=== PATIENT | female | born 1950 | race African-American/Black ===

== ENCOUNTER 2022-09-16 11:02 | Inpatient (IN) | payer BC, MEDICAID ==
[~2022-09-16] VITALS: Ht 167.6 cm; Wt 106.4 kg
[2022-09-16 12:07] LABS: BASOPHILS % 0.9 % (0.0-2.0); HEMATOCRIT. 34.7 % (36.0-48.0); HEMOGLOBIN. 11.3 g/dL (12.0-16.0); LYMPHOCYTES % 45.3 % (20.0-50.0); MEAN CORPUSCULAR VOLUME 70.9 fL (81.0-99.0); MEAN PLATELET VOLUME 10.4 fl (7.4-10.4); MONOCYTES % 8.7 % (2.0-8.0); NEUTROPHILS % 43.1 % (40.0-76.0); PLATELET 219 x1000/uL (130-400); RED CELL DISTRIBUTION WIDTH 15.3 % (11.6-14.6)
[2022-09-16 12:15] LABS: CHLORIDE 108 mEq/L (98-107)
[2022-09-16] MEDS ORDERED: ENOXAPARIN 80MG/0.8ML SYR SUBCUT NR (13:45)
[2022-09-16] MEDS ORDERED: ENOXAPARIN 80MG/0.8ML SYR SUBCUT ONE (13:45)
[2022-09-16] MEDS ORDERED: CLONIDINE 0.1MG TABLET PO PRN (14:30)
[2022-09-16] MEDS ORDERED: IPRATROPIUM/ALBUTEROL 0.5-3(2.5)MG/3ML NEB HHN PRN (14:30)
[2022-09-16] MEDS ORDERED: ENOXAPARIN 40MG/0.4ML SYR SUBCUT SCH (14:30)
[2022-09-16] MEDS ORDERED: ONDANSETRON HCL 4MG/2ML INJ IV PRN (14:30)
[2022-09-16] MEDS ORDERED: HYDROCODONE/ACETAMINOPHEN 5/325MG TABLET PO PRN (14:30)
[2022-09-16] MEDS ORDERED: ACETAMINOPHEN 325MG TABLET PO PRN (14:30)
[2022-09-16] MEDS ORDERED: GUAIFENESIN 200MG/10ML SUGAR FREE UDC PO PRN (14:30)
[2022-09-16] MEDS ORDERED: POTASSIUM CHLORIDE 20MEQ TABLET SR PO NR (15:00)
[2022-09-16] MEDS ORDERED: NALOXONE HCL 0.4MG/ML VIAL IV PRN (15:00)
[2022-09-16] MEDS ORDERED: IOHEXOL-350 100 ML BOTTLE ONE ×2 (15:06→18:10)
[2022-09-16 16:03] LABS: TOTAL IRON BINDING CAPACITY 286 ug/dL (250-450)
[2022-09-16 16:18] LABS: FERRITIN 28 ng/mL (10-291)
[2022-09-16 16:59] LABS: VITAMIN B12 SERUM 509 pg/mL (211-911)
[2022-09-16 17:13] LABS: FOLIC ACID (FOLATE) SERUM > 20.00 ng/mL (>5.38)
[2022-09-16 18:00] VITALS: BP 160/57
[2022-09-16] MEDS ORDERED: DIPH25CA83 MT (19:30)
[2022-09-16 20:00] VITALS: BP 152/59
[2022-09-17] VITALS: BP 119/54
[2022-09-17 04:00] VITALS: BP 120/57
[2022-09-17 06:39] LABS: EOSINOPHILS % 3.3 % (0.0-5.0); HEMATOCRIT. 31.1 % (36.0-48.0); MEAN CORPUSCULAR HEMOGLOBIN 22.9 pg (28.0-32.0); MEAN CORPUSCULAR VOLUME 71.6 fL (81.0-99.0); MEAN PLATELET VOLUME 11.1 fl (7.4-10.4); MONOCYTES % 9.8 % (2.0-8.0); NEUTROPHILS % 55.9 % (40.0-76.0); PLATELET 183 x1000/uL (130-400); RED BLOOD CELL COUNT 4.35 mill/uL (4.2-5.4); RED CELL DISTRIBUTION WIDTH 16.2 % (11.6-14.6)
[2022-09-17 06:40] LABS: CHLORIDE 109 mEq/L (98-107)
[2022-09-17 06:52] LABS: HDL CHOLESTEROL 67 mg/dL (40-59); LDL CHOLESTEROL 71 mg/dL (5-100)
[2022-09-17 07:45] VITALS: BP 119/54
[2022-09-17] MEDS: PANTOPRAZOLE SODIUM 40 MG/VIAL IV SCH (09:54)
[2022-09-17] MEDS: AMLODIPINE 5MG TABLET PO SCH (09:54)
[2022-09-17 11:07] VITALS: BP 121/59
[2022-09-17 11:40] LABS: HEPATITIS B SURFACE ANTIGEN NEGATIVE
[2022-09-17 15:35] VITALS: BP 125/59
[2022-09-17 20:00] VITALS: BP 131/62
[2022-09-18] VITALS: BP 116/84
[2022-09-18 04:00] VITALS: BP 125/68
[2022-09-18 07:09] LABS: PROTHROMBIN TIME 10.7 sec (9.6-11.0)
[2022-09-18 07:12] LABS: BASOPHILS % 0.7 % (0.0-2.0); EOSINOPHILS % 4.2 % (0.0-5.0); HEMOGLOBIN. 9.9 g/dL (12.0-16.0); MEAN CORPUSCULAR HEMOGLOBIN 22.3 pg (28.0-32.0); MEAN CORPUSCULAR VOLUME 71.8 fL (81.0-99.0); MEAN PLATELET VOLUME 10.7 fl (7.4-10.4); MONOCYTES % 10.1 % (2.0-8.0); PLATELET 186 x1000/uL (130-400); RED BLOOD CELL COUNT 4.46 mill/uL (4.2-5.4); RED CELL DISTRIBUTION WIDTH 16.1 % (11.6-14.6)
[2022-09-18 07:45] LABS: CHLORIDE 109 mEq/L (98-107)
[2022-09-18 08:00] VITALS: BP 111/69
[2022-09-18] MEDS: PANTOPRAZOLE SODIUM 40 MG/VIAL IV SCH (09:31)
[2022-09-18] MEDS: AMLODIPINE 5MG TABLET PO SCH (09:31)
[2022-09-18 12:00] VITALS: BP 131/79
[2022-09-18] MEDS: ACETAMINOPHEN 325MG TABLET PO PRN ×2 (13:58→20:59)
[2022-09-18] MEDS: MAGNESIUM/ALUMINUM HYDROXIDE/SIMETHICONE 30ML UDC PO PRN (14:03)
[2022-09-18] MEDS: DOCUSATE SODIUM 100MG CAPSULE PO PRN (14:03)
[2022-09-18 16:00] VITALS: BP 135/69
[2022-09-18 20:00] VITALS: BP 130/67
[2022-09-19] VITALS: BP 122/68
[2022-09-19] MEDS: ACETAMINOPHEN 325MG TABLET PO PRN ×3 (02:39→23:20)
[2022-09-19] MEDS: MAGNESIUM/ALUMINUM HYDROXIDE/SIMETHICONE 30ML UDC PO PRN ×2 (02:50→15:29)
[2022-09-19] MEDS: DOCUSATE SODIUM 100MG CAPSULE PO PRN (02:50)
[2022-09-19 04:00] VITALS: BP 135/65
[2022-09-19 07:16] LABS: BASOPHILS % 0.8 % (0.0-2.0); EOSINOPHILS % 4.7 % (0.0-5.0); HEMATOCRIT. 32.7 % (36.0-48.0); HEMOGLOBIN. 10.3 g/dL (12.0-16.0); LYMPHOCYTES % 25.8 % (20.0-50.0); MEAN CORPUSCULAR HEMOGLOBIN 22.7 pg (28.0-32.0); MEAN PLATELET VOLUME 11.6 fl (7.4-10.4); MONOCYTES % 8.1 % (2.0-8.0); NEUTROPHILS % 60.6 % (40.0-76.0); PLATELET 206 x1000/uL (130-400); RED BLOOD CELL COUNT 4.55 mill/uL (4.2-5.4); RED CELL DISTRIBUTION WIDTH 16.2 % (11.6-14.6)
[2022-09-19 07:29] LABS: CHLORIDE 108 mEq/L (98-107)
[2022-09-19 08:00] VITALS: BP 103/56
[2022-09-19] MEDS: AMLODIPINE 5MG TABLET PO SCH (09:00)
[2022-09-19] MEDS: PANTOPRAZOLE SODIUM 40 MG/VIAL IV SCH (09:05)
[2022-09-19 12:20] VITALS: BP 134/65
[2022-09-19 16:00] VITALS: BP 142/71
[2022-09-19 20:00] VITALS: BP 132/59
[2022-09-20] VITALS: BP 138/58
[2022-09-20 04:00] VITALS: BP 143/64
[2022-09-20 07:48] LABS: CHLORIDE 109 mEq/L (98-107)
[2022-09-20 07:49] LABS: BASOPHILS % 0.9 % (0.0-2.0); EOSINOPHILS % 3.1 % (0.0-5.0); HEMATOCRIT. 32.3 % (36.0-48.0); HEMOGLOBIN. 10.3 g/dL (12.0-16.0); LYMPHOCYTES % 21.8 % (20.0-50.0); MEAN CORPUSCULAR HEMOGLOBIN 22.9 pg (28.0-32.0); MEAN CORPUSCULAR VOLUME 71.6 fL (81.0-99.0); MEAN PLATELET VOLUME 11.6 fl (7.4-10.4); MONOCYTES % 9.9 % (2.0-8.0); NEUTROPHILS % 64.3 % (40.0-76.0); PLATELET 172 x1000/uL (130-400); RED BLOOD CELL COUNT 4.52 mill/uL (4.2-5.4); RED CELL DISTRIBUTION WIDTH 15.9 % (11.6-14.6)
[2022-09-20 08:00] VITALS: BP 129/44
[2022-09-20] MEDS: PANTOPRAZOLE SODIUM 40 MG/VIAL IV SCH (10:06)
[2022-09-20] MEDS: AMLODIPINE 5MG TABLET PO SCH (10:06)
[2022-09-20 12:00] VITALS: BP 144/64
[2022-09-20] MEDS ORDERED: FERROUS SULFATE 300MG/5ML UDC PO SCH (13:10)
[2022-09-20 15:07] VITALS: BP 144/69
== END 2022-09-20 16:15 | disposition home or self-care (01) | DRG 375 ==
LOC: ER 11:02 → 7WST 13:33 → EDBEDREQTM 13:36 → EDBEDREQ 13:36
PROVIDERS: ADMIT Hospitalist; ATTEND Hospitalist
DX: C19 Malignant neoplasm of rectosigmoid junction (principal); E44.1 Mild protein-calorie malnutrition; D50.9 Iron deficiency anemia, unspecified; E87.6 Hypokalemia; F20.9 Schizophrenia, unspecified; I10 Essential (primary) hypertension; I99.8 Other disorder of circulatory system; R73.9 Hyperglycemia, unspecified; D72.819 Decreased white blood cell count, unspecified; R20.0 Anesthesia of skin; K57.30 Diverticulosis of large intestine without perforation or abscess without bleeding; R20.2 Paresthesia of skin; E87.70 Fluid overload, unspecified; K64.4 Residual hemorrhoidal skin tags; Z85.038 Personal history of other malignant neoplasm of large intestine; Z90.710 Acquired absence of both cervix and uterus; Z90.49 Acquired absence of other specified parts of digestive tract; Z68.37 Body mass index [BMI] 37.0-37.9, adult
CPT/HCPCS: 36415; 71045; 71275; 74177; 76700; 80053; 80061; 82378; 82607; 82728; 82746; 83036; 83540; 83550; 83880; 84484; 85025; 85379; 86803; 87340; 93970; 99285; C9113; J1650; Q9967